=== PATIENT | female | born 1960 | race Caucasian/White ===

== ENCOUNTER 2021-11-16 13:34 | Observation (INO) ==
[2021-11-16] MEDS ORDERED: Morphine Sulfate 2 MG/ML SYRINGE IVP ONE (14:58)
[2021-11-16] MEDS ORDERED: Benzonatate 100 MG CAPSULE PO ONE (14:59)
[2021-11-16] MEDS ORDERED: Isovue-370 500 ML BOTTLE IVP ONE (14:59)
[2021-11-16 16:21] LABS: Alanine Aminotransferase 11 Units/L (7-52); Albumin 4.1 g/dL (3.5-5.7); Albumin/Globulin Ratio 1.4 (1.1-2.2); Alkaline Phosphatase 74 Units/L (34-104); Aspartate Amino Transferase 27 Units/L (13-39); BUN/Creatinine Ratio 16 (6-26); Bilirubin,Direct 0.2 mg/dL (0.0-0.2); Bilirubin,Indirect 0.6 mg/dL (0.0-1.0); Bilirubin,Total 0.8 mg/dL (0.3-1.0); Blood Urea Nitrogen 15 mg/dL (8-23); Calcium 9.6 mg/dL (8.6-10.3); Carbon Dioxide 25 mEq/L (23-29); Chloride 102 mEq/L (98-107); Globulin 2.9 g/dL (2.4-3.5); Glucose 100 mg/dL (70-105); Lipase 13 Units/L (11-82); Osmolality,Calculated 287 (280-300); Potassium 4.5 mEq/L (3.5-5.1); Sodium 138 mEq/L (136-145); eGFR For African Americans > 60 (> 60); eGFR For Non-African Americans > 60 (> 60)
[2021-11-16 16:33] LABS: Bilirubin,Urine Negative (Negative); Blood,Urine Negative (Negative); Clarity,Urine Clear (Clear); Color,Urine Light-Yellow (Yellow); Glucose,Urine (UA) Normal (Normal); Hyaline Casts,Urine Moderate per lpf (None Seen); Ketones,Urine Negative (Negative); Leukocyte Esterase,Urine Moderate (Negative); Mucus,Urine Few per lpf (None-Few); Nitrite,Urine Negative (Negative); PH,Urine 6.5 pH Units (5.0-8.0); Protein,Urine Trace mg/dL (Neg-Trace); Specific Gravity,Urine 1.016 (1.010-1.025); Squamous Epithelial Cell,Urine Few per hpf (None-Few); Urobilinogen,Urine Normal (Normal)
[2021-11-16 16:38] LABS: INR 3.8; Prothrombin Time 41.9 Seconds (9.4-12.1)
[2021-11-16 16:40] LABS: Activated Partial Thrombo Time 45.6 Seconds (26.0-36.0)
[2021-11-16 16:45] LABS: Basophils % 0.4 %; Eosinophils # 0.2 K/mcL (0.0-0.6); Eosinophils % 1.8 %; Hematocrit 33.2 % (35.3-44.9); Hemoglobin 10.5 g/dL (11.5-15.4); Immature Granulocytes % 0.6 % (0-4); Lymphocytes # 0.9 K/mcL (0.6-4.6); Lymphocytes % 11.3 %; Mean Corpuscular HGB Conc 31.6 g/dL (31.6-35.5); Mean Corpuscular Hemoglobin 28.2 pg (28.0-33.3); Mean Platelet Volume 10.6 fL (9.4-12.4); Monocytes # 1.2 K/mcL (0.0-1.3); Monocytes % 14.7 %; Neutrophils # 5.8 K/mcL (1.6-8.9); Platelet Count 221 K/mcL (140-400); Red Blood Count 3.73 M/mcL (3.82-4.97); Red Cell Distribution Width 14.6 % (11.5-14.5); Segmented Neutrophils % 71.2 %; White Blood Count 8.1 K/mcL (4.3-11.1)
[2021-11-16] MEDS ORDERED: Melatonin 3 MG TABLET PO PRN (19:30)
[2021-11-16] MEDS ORDERED: Naloxone 0.4 MG/ML INJ IVP PRN (19:30)
[2021-11-16] MEDS ORDERED: Ondansetron ODT 4 MG TAB.RAPDIS SL PRN (19:30)
[2021-11-16] MEDS ORDERED: *HR* HYDROcodone/Acet 5/325 mg TABLET PO PRN (19:30)
[2021-11-16] MEDS ORDERED: Acetaminophen 325 MG TABLET PO PRN (19:30)
[2021-11-16] MEDS ORDERED: traZODone 50 MG TABLET PO PRN (19:56)
[2021-11-16] MEDS ORDERED: *HR* Warfarin 2 MG TABLET PO SCH (20:00)
[2021-11-16] MEDS ORDERED: Gabapentin 300 MG CAPSULE PO SCH (21:00)
[2021-11-16] MEDS: *HR* OxyCODONE Immed Rel 5 MG TABLET PO PRN (22:13)
[2021-11-16] MEDS: GuaiFENesin Liq 200 MG/10 ML UDC PO PRN (22:13)
[2021-11-17 01:36] LABS: Hematocrit 32.2 % (35.3-44.9); Hemoglobin 10.1 g/dL (11.5-15.4); Mean Corpuscular HGB Conc 31.4 g/dL (31.6-35.5); Mean Corpuscular Hemoglobin 28.1 pg (28.0-33.3); Mean Corpuscular Volume 89.7 fL (83.0-100.0); Mean Platelet Volume 10.7 fL (9.4-12.4); Platelet Count 210 K/mcL (140-400); Red Blood Count 3.59 M/mcL (3.82-4.97); Red Cell Distribution Width 14.6 % (11.5-14.5); White Blood Count 7.6 K/mcL (4.3-11.1)
[2021-11-17 01:41] LABS: INR 3.3; Prothrombin Time 36.8 Seconds (9.4-12.1)
[2021-11-17 01:59] LABS: BUN/Creatinine Ratio 15 (6-26); Blood Urea Nitrogen 13 mg/dL (8-23); Calcium 9.4 mg/dL (8.6-10.3); Carbon Dioxide 29 mEq/L (23-29); Chloride 101 mEq/L (98-107); Chol/HDL Ratio 2.3 (0-4.9); Cholesterol 101 mg/dL (< 200); Glucose 88 mg/dL (70-105); HDL Cholesterol 43 mg/dL (40-59); LDL Cholesterol,Calculated 38 mg/dL (< 100); Magnesium 1.7 mg/dL (1.6-2.6); Osmolality,Calculated 286 (280-300); Phosphorous 3.8 mg/dL (2.7-4.5); Potassium 3.8 mEq/L (3.5-5.1); Sodium 138 mEq/L (136-145); Triglycerides 101 mg/dL (< 150); eGFR For African Americans > 60 (> 60); eGFR For Non-African Americans > 60 (> 60)
[2021-11-17] MEDS: GuaiFENesin Liq 200 MG/10 ML UDC PO PRN (04:22)
[2021-11-17] MEDS: *HR* OxyCODONE Immed Rel 5 MG TABLET PO PRN (04:22)
[2021-11-17 06:27] LABS: Hematocrit 32.2 % (35.3-44.9); Hemoglobin 10.1 g/dL (11.5-15.4)
[2021-11-17] MEDS ORDERED: Magnesium Sulfate 1 GM/102 ML PIGGYBACK IVPB ONE (08:18)
[2021-11-17] MEDS ORDERED: NON-FORMULARY MEDICATION 1 EACH EACH (Esomeprazole Magnesium [Nexium] 40 MG Capsule.Dr) PO SCH (09:00)
[2021-11-17] MEDS ORDERED: Furosemide 40 MG TABLET PO SCH (09:00)
[2021-11-17] MEDS ORDERED: Cholecalciferol (D-3) 1,000 UNIT (25MCG) TABLET PO SCH (09:00)
[2021-11-17] MEDS ORDERED: Pantoprazole 40 MG VIAL IVP SCH (09:00)
[2021-11-17 11:00] VITALS: O2SAT 90
[2021-11-17 12:50] LABS: Hematocrit 32.6 % (35.3-44.9)
[2021-11-17 14:34] VITALS: BP 97/60; PULSE 60
[2021-11-17 15:15] VITALS: TEMP 99
[2021-11-17] MEDS ORDERED: *HR* Warfarin 1 MG TABLET PO ONE (18:00)
[2021-11-17] MEDS ORDERED: Warfarin perPT PO PRN (18:00)
[2021-11-18] MEDS ORDERED: *HR* Warfarin 2.5 MG TABLET PO SCH (19:56)
== END 2021-11-17 15:36 | disposition home or self-care (01) ==
LOC: EMEROOARM 13:34 → 3ANU 13:34 → SUATTDRO 19:43 → 3ANU 19:47
PROVIDERS: ADMIT Internal Medicine; ATTEND Internal Medicine